=== PATIENT | female | born 1995 ===

== ENCOUNTER → 2017-05-03 | Outpatient (CLI) | payer OTHER | END | disposition home or self-care (01) | LOC: PPHC LAB 14:14 → EDBD 14:14 | DX: Z02.0 Encounter for examination for admission to educational institution (principal) ==

== ENCOUNTER → 2017-05-03 | Outpatient (CLI) | payer OTHER | END | disposition home or self-care (01) | LOC: PPHC 16:06 | DX: Z02.0 Encounter for examination for admission to educational institution (principal) ==